=== PATIENT | male | born 1965 | race Caucasian/White ===

== ENCOUNTER 2018-01-11 11:21 | Observation (INO) | payer BC ==
[2018-01-11] MEDS: Aspirin 81 MG Tab.Chew PO ONE (11:27)
[2018-01-11] MEDS: GI Cocktail Oral Solution 30 ML PO ONE (11:51)
--- NOTE | 2018-01-11 11:51 | EDM.PDOC ---
ED HPI GENERAL MEDICAL PROBLEM - General Chief Complaint: Chest Pain Stated Complaint: chest pain Time Seen by Provider: 01/11/18 11:36 Source of Information: Reports: Patient, Family, RN, RN Notes Reviewed History Limitations: Reports: No Limitations - History of Present Illness INITIAL COMMENTS - FREE TEXT/NARRATIVE: Patient presents to the ED at [facility] complaining of substernal chest pain. Patient states the pain started a couple of hours ago. He states he has a history of panic attacks, "but this feels different." He states he has tingling down both arms. When his pain started, he did have SOB but no SOB now. Patient denies any N/V/D. No focal neurological complaints. No significant cardiac history. Onset: Today, Gradual Onset Date: 01/11/18 Middle Chest Pain Score (Numeric/FACES): 5 - Related Data Allergies Allergy/AdvReac Type Severity Reaction Status Date / Time erythromycin base Allergy Nausea Verified 01/11/18 12:04 hydrocortisone Allergy Anaphylactic Verified 01/11/18 12:04 Shock metoclopramide [From Reglan] Allergy Change Verified 01/11/18 12:04 Mental Status tetracycline Allergy Nausea Verified 01/11/18 12:04 Home Meds: Home Meds Aspirin 81 mg PO DAILY 01/11/18 [History] Dicyclomine [Bentyl] 20 mg PO TID PRN 01/11/18 [History] Lactulose 1,030 ml PO BID PRN 01/11/18 [History] Lansoprazole [Prevacid] 15 mg PO DAILY 01/11/18 [History] Metoprolol Tartrate [Lopressor] 25 mg PO Q12HR 01/11/18 [History] Polyethylene Glycol 3350 [MiraLAX] 17 gm PO DAILY 01/11/18 [History] Sennosides/Docusate Sodium [Senna-Docusate Sodium] 1 each PO DAILY 01/11/18 [ History] buPROPion HCl [Wellbutrin Sr] 200 mg PO BID 01/11/18 [History] hydrOXYzine Pamoate [Vistaril] 25 mg PO QID PRN 01/11/18 [History] ED ROS GENERAL - Review of Systems Review Of Systems: See Below Constitutional: Denies: Fever, Chills, Weakness Respiratory: Reports: Shortness of Breath. Denies: Cough Cardiovascular: Reports: Chest Pain. Denies: Palpitations GI/Abdominal: Denies: Abdominal Pain, Nausea, Vomiting Skin: Reports: No Symptoms Neurological: Reports: Tingling (down both arms). Denies: Dizziness, Headache ED EXAM, GENERAL - Physical Exam Exam: See Below Exam Limited By: No Limitations General Appearance: Alert, No Apparent Distress Respiratory/Chest: No Respiratory Distress, Lungs Clear, Normal Breath Sounds Cardiovascular: Normal Peripheral Pulses, Regular Rate, Rhythm, No Edema Peripheral Pulses: 2+: Radial (L), Radial (R) GI/Abdominal: Normal Bowel Sounds, Soft, Non-Tender Neurological: Alert, Oriented Skin Exam: Warm, Dry, Intact, Normal Color EKG INTERPRETATION EKG Date: 01/11/18 Time: 11:31 Rhythm: NSR Rate (Beats/Min): 60 [place]: Normal P-Wave: Present QRS: Normal ST-T: Normal QT: Normal DC/PQ Interval: 0.20 Comparison: NA - No Prior EKG EKG Interpretation Comments: 1. Sinus Rhythm with sinus arrhythmia 2. Normal ECG Course - Vital Signs Last Recorded V/S: Last Vital Signs Temp 36.0 C 01/11/18 11:26 Pulse 78 01/11/18 12:29 Resp 16 01/11/18 12:29 BP 139/80 01/11/18 12:29 Pulse Ox 98 01/11/18 12:29 - Orders/Labs/Meds Orders: Active Orders 24 hr Category Date Time Status EKG 12 Lead [EKG Documentation Completion] [RC] STAT Care 01/11/18 11:39 Active Chest 2V [CR] Stat Exams 01/11/18 11:38 Taken Sodium Chloride 0.9% [Saline Flush] Med 01/11/18 12:24 Active 10 ml FLUSH ASDIRECTED PRN Peripheral IV Insertion Adult [OM.PC] Routine Oth 01/11/18 12:24 Ordered Medication Orders Sodium Chloride (Saline Flush) 10 ml FLUSH ASDIRECTED PRN PRN Reason: Keep Vein Open Labs: Laboratory Tests 01/11/18 01/11/18 01/11/18 Range/Units 11:48 11:48 11:48 WBC 6.7 (4.0-10.0) x10^3/uL RBC 5.01 (4.5-6.0) x10^6/uL Hgb 15.9 (14.0-18.0) g/dL Hct 43.8 (40.0-52.0) % MCV 87.4 (78.0-93.0) fL MCH 31.7 (26.0-32.0) pg MCHC 36.3 H (32.0-36.0) g/dL RDW Coeff of Trish 12.8 (10.0-15.0) % Plt Count 207 (130-400) x10^3/uL Neut % (Auto) 74.9 (50.0-80.0) % Lymph % (Auto) 15.7 L (25.0-50.0) % [place] % (Auto) 7.6 (2.0-11.0) % Eos % (Auto) 1.5 (0.0-4.0) % Baso % (Auto) 0.3 (0.2-1.2) % Sodium 142 (136-145) mmol/L Potassium 4.3 (3.5-5.1) mmol/L Chloride 106 (98-107) mmol/L Carbon Dioxide 26 (21-32) mmol/L Anion Gap 14.3 (10-20) mmol/L BUN 14 (7-18) mg/dL Creatinine 1.5 H (0.70-1.30) mg/dL Est Cr Clr Drug Dosing TNP Estimated GFR (MDRD) 49 Glucose 100 (74-106) mg/dL Calcium 9.0 (8.5-10.1) mg/dL Corrected Calcium 9.00 (8.5-10.1) mg/dL Total Bilirubin 2.0 H (0.2-1.0) mg/dL AST 24 (15-37) U/L ALT 65 H (16-63) U/L Alkaline Phosphatase 92 (46-116) U/L Creatine Kinase 103 (39-308) U/L POC Troponin I 0.00 (0.00-0.08) ng/mL Total Protein 7.2 (6.4-8.2) g/dL Albumin 4.0 (3.4-5.0) g/dL Globulin 3.2 Albumin/Globulin Ratio 1.25 Meds: Medications Generic Name Dose Route Start Last Admin Trade Name Freq PRN Reason Stop Dose Admin Sodium Chloride 10 ml 01/11/18 12:24 Saline Flush FLUSH ASDIRECTED PRN Keep Vein Open Discontinued Medications Generic Name Dose Route Start Last Admin Trade Name [place] PRN Reason Stop Dose Admin Al Hydroxide/Mg Hydroxide 30 ml 01/11/18 11:43 01/11/18 11:51 Gi Cocktail PO 01/11/18 11:44 30 ml ONETIME ONE Administration Aspirin 324 mg 01/11/18 11:43 01/11/18 11:27 Aspirin PO 01/11/18 11:44 324 mg ONETIME ONE Administration Nitroglycerin 0.4 mg 01/11/18 12:20 01/11/18 12:28 Nitrostat SL 01/11/18 12:21 0.4 mg ONETIME ONE Administration - Radiology Interpretation Free Text/Narrative:: CXR: No acute process See scanned report in EMR Departure - Departure Time of Disposition: 13:19 Disposition: Refer to Observation Reason for Transfer *Q: Other Condition: Good Clinical Impression: Chest pain, rule out acute myocardial infarction - Problem List Review Problem List Initiated/Reviewed/Updated: Yes - My Orders Last 24 Hours: My Active Orders 01/11/18 11:38 Chest 2V [CR] Stat 01/11/18 11:39 EKG 12 Lead [EKG Documentation Completion] [RC] STAT 01/11/18 12:24 Sodium Chloride 0.9% [Saline Flush] 10 ml FLUSH ASDIRECTED PRN Peripheral IV Insertion Adult [OM.PC] Routine - Assessment/Plan Last 24 Hours: My Active Orders 01/11/18 11:38 Chest 2V [CR] Stat 01/11/18 11:39 EKG 12 Lead [EKG Documentation Completion] [RC] STAT 01/11/18 12:24 Sodium Chloride 0.9% [Saline Flush] 10 ml FLUSH ASDIRECTED PRN Peripheral IV Insertion Adult [OM.PC] Routine Assessment:: Chest Pain R/O DC Plan: Case discussed with Dr. Danni Camacho. Will admit observation and monitor serial enzymes and EKG's. If normal will D/C home and schedule outpatient stress test with Dr. Camacho for next week. Patient agrees with POC.
[2018-01-11 12:24] LABS: CHLORIDE,CL 106 mmol/L (98-107); SODIUM,NA 142 mmol/L (136-145)
[2018-01-11] MEDS ORDERED: Sodium Chloride 0.9% 10 ML Syringe FLUSH PRN (12:24)
[2018-01-11] MEDS: Nitroglycerin 0.4 MG Tab.SL SL ONE (12:28)
[2018-01-11] MEDS ORDERED: Nitroglycerin 0.4 MG Tab.SL SL PRN (13:48)
[2018-01-11] MEDS ORDERED: Ondansetron 4 MG Tab.DIS PO PRN (13:48)
[2018-01-11] MEDS ORDERED: Morphine 4 MG/ML Syringe IVPUSH PRN (13:48)
[2018-01-11] MEDS ORDERED: hydrOXYzine HCl 25 MG Tab PO PRN (13:52)
[2018-01-11] MEDS ORDERED: Lactulose Soln 10 GM/15 ML 15 ML UD Cup PO PRN (13:52)
[2018-01-11] MEDS ORDERED: Dicyclomine 10 MG Cap PO PRN (13:52)
[2018-01-11] MEDS ORDERED: Lactulose Soln 10 GM/15 ML 30 ML UD Cup PO PRN (14:30)
--- NOTE | 2018-01-11 14:30 | PCM.HP ---
H&P History of Present Illness - General Date of Service: 01/11/18 Admit Problem/Dx: Admission Diagnosis/Problem Admission Diagnosis/Problem Chest pain R/O MA Source of Information: Patient, Old Records, RN, RN Notes Reviewed History Limitations: Reports: No Limitations - History of Present Illness Initial Comments - Free Text/Narative: Patient presented to the ED at [facility] complaining of chest pain that started earlier today. He states he had concurrent SOB. Patient was evaluated in the ED and found normal enzymes and EKG. Patient states that he also have tingling down both arms. Patient currently is chest pain free after one nitro. He denies any focal neurological deficits. Patient denies any N/V/D. No SOB. Patient states he feels better than he did earlier today. Onset of Symptoms: Reports: Today, Gradual Symptom Onset Date: 01/11/18 Middle Chest Pain Score (Numeric/FACES): 5 - Related Data Allergies/Adverse Reactions: Allergies Allergy/AdvReac Type Severity Reaction Status Date / Time erythromycin base Allergy Nausea Verified 01/11/18 12:04 hydrocortisone Allergy Anaphylactic Verified 01/11/18 12:04 Shock metoclopramide [From Reglan] Allergy Change Verified 01/11/18 12:04 Mental Status tetracycline Allergy Nausea Verified 01/11/18 12:04 Home Medications: Home Meds Aspirin 81 mg PO DAILY 01/11/18 [History] Dicyclomine [Bentyl] 20 mg PO TID PRN 01/11/18 [History] Lactulose 1,030 ml PO BID PRN 01/11/18 [History] Lansoprazole [Prevacid] 15 mg PO DAILY 01/11/18 [History] Metoprolol Tartrate [Lopressor] 25 mg PO Q12HR 01/11/18 [History] Polyethylene Glycol 3350 [MiraLAX] 17 gm PO DAILY 01/11/18 [History] Sennosides/Docusate Sodium [Senna-Docusate Sodium] 1 each PO DAILY 01/11/18 [ History] buPROPion HCl [Wellbutrin Sr] 200 mg PO BID 01/11/18 [History] hydrOXYzine Pamoate [Vistaril] 25 mg PO QID PRN 01/11/18 [History] Past Medical History Cardiovascular History: Reports: Hypertension Respiratory History: Reports: Sleep Apnea Gastrointestinal History: Reports: Colon Polyp, GERD, Irritable Bowel Syndrome Genitourinary History: Reports: Chronic Renal Insuffiency, Other (See Below) Other Genitourinary History: enlarged prostate Psychiatric History: Reports: ADD, Depression, OCD, Panic Attack Other Psychiatric History: daytime somnolence - Past Surgical History Other GI Surgeries/Procedures: colon polyp Social & Family History - Family History Family Medical History: Noncontributory - Tobacco Use Smoking Status *Q: Never Smoker - Recreational Drug Use Recreational Drug Use: No H&P Review of Systems - Review of Systems: Review Of Systems: See Below General: Denies: Fever, Chills, Weakness Pulmonary: Denies: Shortness of Breath, Cough Cardiovascular: Denies: Chest Pain, Palpitations Gastrointestinal: Denies: Abdominal Pain, Nausea, Vomiting Skin: Reports: No Symptoms Neurological: Denies: Dizziness, Headache, Numbness, Paresthesia, Tingling Exam - Exam Exam: See Below - Vital Signs Vital Signs: Last Vital Signs Temp 36.3 C 01/11/18 13:54 Pulse 53 L 01/11/18 13:54 Resp 16 01/11/18 13:54 BP 135/81 01/11/18 13:54 Pulse Ox 100 01/11/18 13:54 Weight: 108.862 kg - Exam General: Alert, Oriented Lungs: Clear to Auscultation, Normal Respiratory Effort Cardiovascular: Regular Rate, Regular Rhythm, Normal S1, Normal S2 GI/Abdominal Exam: Normal Bowel Sounds, Soft, Non-Tender Extremities: Normal Inspection Peripheral Pulses: 2+: Radial (L), Radial (R) Skin: Warm, Dry, Intact Neuro Extensive - Mental Status: Alert, Oriented x3 - Patient Data Lab Results Last 24 hrs: Laboratory Results - last 24 hr 01/11/18 01/11/18 01/11/18 Range/Units 11:48 11:48 11:48 WBC 6.7 (4.0-10.0) x10^3/uL RBC 5.01 (4.5-6.0) x10^6/uL Hgb 15.9 (14.0-18.0) g/dL Hct 43.8 (40.0-52.0) % MCV 87.4 (78.0-93.0) fL MCH 31.7 (26.0-32.0) pg MCHC 36.3 H (32.0-36.0) g/dL RDW Coeff of Trish 12.8 (10.0-15.0) % Plt Count 207 (130-400) x10^3/uL Neut % (Auto) 74.9 (50.0-80.0) % Lymph % (Auto) 15.7 L (25.0-50.0) % [place] % (Auto) 7.6 (2.0-11.0) % Eos % (Auto) 1.5 (0.0-4.0) % Baso % (Auto) 0.3 (0.2-1.2) % Sodium 142 (136-145) mmol/L Potassium 4.3 (3.5-5.1) mmol/L Chloride 106 (98-107) mmol/L Carbon Dioxide 26 (21-32) mmol/L Anion Gap 14.3 (10-20) mmol/L BUN 14 (7-18) mg/dL Creatinine 1.5 H (0.70-1.30) mg/dL Est Cr Clr Drug Dosing TNP Estimated GFR (MDRD) 49 Glucose 100 (74-106) mg/dL Calcium 9.0 (8.5-10.1) mg/dL Corrected Calcium 9.00 (8.5-10.1) mg/dL Total Bilirubin 2.0 H (0.2-1.0) mg/dL AST 24 (15-37) U/L ALT 65 H (16-63) U/L Alkaline Phosphatase 92 (46-116) U/L Creatine Kinase 103 (39-308) U/L POC Troponin I 0.00 (0.00-0.08) ng/mL Total Protein 7.2 (6.4-8.2) g/dL Albumin 4.0 (3.4-5.0) g/dL Globulin 3.2 Albumin/Globulin Ratio 1.25 Result Diagrams: 01/11/18 11:48 01/11/18 11:48 *Q Meaningful Use (ADM) - VTE *Q VTE Criteria *Q: Patient is not at risk for fall or VTE at time of admission - Problem List (1) Chest pain, rule out acute myocardial infarction SNOMED Code(s): 97511833 ICD Code: R07.9 - CHEST PAIN, UNSPECIFIED Status: Acute Priority: High Current Visit: Yes Onset Date: ~01/11/18 Problem List Initiated/Reviewed/Updated: Yes Orders Last 24hrs: Active Orders 24 hr Category Date Time Status Patient Status [ADT] Routine ADT 01/11/18 13:54 Active Cardiac Monitoring [RC] 02,06,10,14,18,22 Care 01/11/18 13:48 Active EKG 12 Lead [EKG Documentation Completion] [RC] ROUTINE Care 01/11/18 15:00 Active EKG Documentation Completion [RC] ROUTINE Care 01/11/18 18:00 Active Intake and Output [RC] ,18 Care 01/11/18 13:55 Active May Shower [RC] 08,20 Care 01/11/18 13:54 Active Oxygen Therapy [RC] .PRN Care 01/11/18 13:54 Active Oxygen Therapy [RC] ASDIRECTED Care 01/11/18 13:48 Active Up ad Suha [RC] 08,20 Care 01/11/18 13:54 Active VTE/DVT Education [RC] .PRN Care 01/11/18 13:54 Active Vital Signs [RC] 02,06,10,14,18,22 Care 01/11/18 13:54 Active Heart Healthy Diet [DIET] Diet 01/11/18 Dinner Active Chest 2V [CR] Stat Exams 01/11/18 11:38 Taken CREATINE KINASE,CK [CHEM] Routine Lab 01/11/18 15:00 Ordered CREATINE KINASE,CK [CHEM] Routine Lab 01/11/18 18:00 Ordered TROPONIN I [CHEM] Routine Lab 01/11/18 15:00 Ordered TROPONIN I [CHEM] Routine Lab 01/11/18 18:00 Ordered Aspirin [Halfprin] Med 01/12/18 08:00 Active 81 mg PO DAILY Dicyclomine [Bentyl] Med 01/11/18 13:52 Active 20 mg PO TID PRN Docusate Sodium/Sennosides [Senna Plus] Med 01/12/18 08:00 Active 1 tab PO DAILY Lactulose [Chronulac] Med 01/11/18 13:52 Ordered 686.666 gm PO BID PRN Lansoprazole [Prevacid] Med 01/12/18 08:00 Ordered 15 mg PO DAILY Metoprolol Tartrate [Lopressor] Med 01/11/18 20:00 Ordered 25 mg PO Q12HR Morphine Med 01/11/18 13:48 Active 4 mg IVPUSH Q10M PRN Nitroglycerin [Nitrostat] Med 01/11/18 13:48 Active 0.4 mg SL Q5M PRN Ondansetron [Zofran ODT] Med 01/11/18 13:48 Active 4 mg PO Q6H PRN Polyethylene Glycol 3350 [MiraLAX] Med 01/12/18 08:00 Ordered 17 gm PO DAILY Sodium Chloride 0.9% [Saline Flush] Med 01/11/18 12:24 Active 10 ml FLUSH ASDIRECTED PRN buPROPion [Wellbutrin SR] Med 01/11/18 20:00 Active 200 mg PO BID hydrOXYzine Pamoate [Vistaril] Med 01/11/18 13:52 Ordered 25 mg PO QID PRN Peripheral IV Insertion Adult [OM.PC] Routine Oth 01/11/18 12:24 Ordered Resuscitation Status Routine Resus Stat 01/11/18 13:54 Ordered Medication Orders Aspirin (Halfprin) 81 mg PO DAILY [facility] Bupropion HCl (Wellbutrin Sr) 200 mg PO BID [facility] Dicyclomine HCl (Bentyl) 20 mg PO TID PRN PRN Reason: Cramping Lactulose (Chronulac) 686.666 gm PO BID PRN PRN Reason: Constipation Metoprolol Tartrate (Lopressor) 25 mg PO Q12HR [facility] Morphine Sulfate (Morphine) 4 mg IVPUSH Q10M PRN PRN Reason: Chest Pain Stop: 01/12/18 13:49 Nitroglycerin (Nitrostat) 0.4 mg SL Q5M PRN PRN Reason: Chest Pain Stop: 01/12/18 13:49 Non-Formulary Medication (Hydroxyzine Pamoate [Vistaril]) 25 mg PO QID PRN PRN Reason: Itching Non-Formulary Medication (Lansoprazole [Prevacid]) 15 mg PO DAILY [facility] Ondansetron HCl (Zofran Odt) 4 mg PO Q6H PRN PRN Reason: Nausea/Vomiting Polyethylene Glycol (Miralax) 17 gm PO DAILY [facility] Senna/Docusate Sodium (Senna Plus) 1 tab PO DAILY [facility] Sodium Chloride (Saline Flush) 10 ml FLUSH ASDIRECTED PRN PRN Reason: Keep Vein Open Assessment/Plan Comment:: 52 yo male patient with a PMH of anxiety, ALONDRA, and hypertension is admitted to the observation unit at [facility] for a diagnosis of chest pain r/o MA. Patient will be placed on telemetry. Cardiac chest pain standing orders initiated. Continue home medication without any changes. Will check serial enzymes with EKG's. If normal, patient may go home later this evening. Patient is a Code 1. Patient does wish to be transferred to a higher level of care should the need arise. DVT prophylaxis is early ambulation. No indication for Lovenox
--- NOTE | 2018-01-11 19:35 | PCM.DCSUM1 ---
Discharge Summary - Hospital Course HPI Initial Comments: Patient presented to the ED at [facility] earlier today complaining of chest pain that started this morning. He states he had concurrent SOB. Patient was evaluated in the ED and found normal enzymes and EKG. Patient states that he also have tingling down both arms. Patient currently is chest pain free after one nitro. He denies any focal neurological deficits. Patient denies any N/V/D. No SOB. Patient states he feels better than he did earlier today. Diagnosis: Stroke: No Modified Amy Scale: No Symptoms at All Modified Owsley Scale Score: 0 - Discharge Data Discharge Date: 01/11/18 Discharge Disposition: Home, Self-Care 01 Condition: Good - Discharge Diagnosis/Problem(s) (1) Chest pain, rule out acute myocardial infarction SNOMED Code(s): 55715630 ICD Code: R07.9 - CHEST PAIN, UNSPECIFIED Status: Resolved Priority: High Current Visit: Yes Onset Date: ~01/11/18 - Patient Summary/Data Operative Procedure(s) Performed: None Consults: Dr. Danni Camacho, Labs Pending at D/C: None Recommended Follow-up Testing/Procedures: Stress test with Dr. Camacho next with at [facility] Course: Patient remained pain free. VSS. No fevers. Patient did not have any SOB. No focal neurological problems. - Patient Instructions Diet: Heart Healthy Diet Activity: Rest and Relax Today Driving: May Drive Today Showering/Bathing: May Shower Notify Provider of: Fever, Increased Pain, Nausea and/or Vomiting - Discharge Plan Home Medications: Home Meds Aspirin 81 mg PO DAILY 01/11/18 [History] Dicyclomine [Bentyl] 20 mg PO Q8H PRN 01/11/18 [History] Lactulose 30 ml PO BID PRN 01/11/18 [History] Lansoprazole [Prevacid] 15 mg PO DAILY 01/11/18 [History] Metoprolol Tartrate [Lopressor] 25 mg PO BID 01/11/18 [History] Polyethylene Glycol 3350 [MiraLAX] 17 gm PO DAILY 01/11/18 [History] Sennosides/Docusate Sodium [Senna-Docusate Sodium] 1 tab PO DAILY 01/11/18 [ History] buPROPion HCl [Wellbutrin SR] 200 mg PO BID 01/11/18 [History] hydrOXYzine Pamoate [Vistaril] 25 mg PO QID PRN 01/11/18 [History] Patient Handouts: Chest Pain Observation Referrals: Rebecca Camacho PA-C [Primary Care Provider] - - Discharge Summary/Plan Comment DC Time >30 min.: No - General Info Date of Service: 01/11/18 Admission Dx/Problem (Free Text: Admission Diagnosis/Problem Admission Diagnosis/Problem Chest pain R/O NE Subjective Update: Patient offers no specific complaints at the time of discharge. Patient states he feels well, no pain or chest pain. Functional Status: Reports: Pain Controlled, Tolerating Diet, Ambulating, Urinating - Review of Systems General: Denies: Fever, Weakness, Chills Pulmonary: Denies: Shortness of Breath, Cough Cardiovascular: Denies: Chest Pain, Palpitations Gastrointestinal: Denies: Abdominal Pain, Nausea, Vomiting Skin: Reports: No Symptoms Neurological: Reports: No Symptoms. Denies: Dizziness, Headache - Patient Data Vitals - Most Recent: Last Vital Signs Temp 36.8 C 01/11/18 16:54 Pulse 85 01/11/18 16:54 Resp 14 01/11/18 16:54 BP 138/69 01/11/18 16:54 Pulse Ox 100 01/11/18 16:54 Weight - Most Recent: 108.862 kg I&O - Last 24 hours: Intake & Output 01/11/18 01/11/18 01/11/18 06:59 14:59 22:59 Intake Total 360 Output Total 500 Balance -140 Lab Results - Last 24 hrs: Laboratory Results - last 24 hr 01/11/18 01/11/18 01/11/18 Range/Units 11:48 11:48 11:48 WBC 6.7 (4.0-10.0) x10^3/uL RBC 5.01 (4.5-6.0) x10^6/uL Hgb 15.9 (14.0-18.0) g/dL Hct 43.8 (40.0-52.0) % MCV 87.4 (78.0-93.0) fL MCH 31.7 (26.0-32.0) pg MCHC 36.3 H (32.0-36.0) g/dL RDW Coeff of Trish 12.8 (10.0-15.0) % Plt Count 207 (130-400) x10^3/uL Neut % (Auto) 74.9 (50.0-80.0) % Lymph % (Auto) 15.7 L (25.0-50.0) % [place] % (Auto) 7.6 (2.0-11.0) % Eos % (Auto) 1.5 (0.0-4.0) % Baso % (Auto) 0.3 (0.2-1.2) % Sodium 142 (136-145) mmol/L Potassium 4.3 (3.5-5.1) mmol/L Chloride 106 (98-107) mmol/L Carbon Dioxide 26 (21-32) mmol/L Anion Gap 14.3 (10-20) mmol/L BUN 14 (7-18) mg/dL Creatinine 1.5 H (0.70-1.30) mg/dL Est Cr Clr Drug Dosing TNP Estimated GFR (MDRD) 49 Glucose 100 (74-106) mg/dL Calcium 9.0 (8.5-10.1) mg/dL Corrected Calcium 9.00 (8.5-10.1) mg/dL Total Bilirubin 2.0 H (0.2-1.0) mg/dL AST 24 (15-37) U/L ALT 65 H (16-63) U/L Alkaline Phosphatase 92 (46-116) U/L Creatine Kinase 103 (39-308) U/L POC Troponin I 0.00 (0.00-0.08) ng/mL Troponin I (<=0.056) ng/mL Total Protein 7.2 (6.4-8.2) g/dL Albumin 4.0 (3.4-5.0) g/dL Globulin 3.2 Albumin/Globulin Ratio 1.25 18 01/11/18 Range/Units 15:25 17:58 WBC (4.0-10.0) x10^3/uL RBC (4.5-6.0) x10^6/uL Hgb (14.0-18.0) g/dL Hct (40.0-52.0) % MCV (78.0-93.0) fL MCH (26.0-32.0) pg MCHC (32.0-36.0) g/dL RDW Coeff of Trish (10.0-15.0) % Plt Count (130-400) x10^3/uL Neut % (Auto) (50.0-80.0) % Lymph % (Auto) (25.0-50.0) % [place] % (Auto) (2.0-11.0) % Eos % (Auto) (0.0-4.0) % Baso % (Auto) (0.2-1.2) % Sodium (136-145) mmol/L Potassium (3.5-5.1) mmol/L Chloride (98-107) mmol/L Carbon Dioxide (21-32) mmol/L Anion Gap (10-20) mmol/L BUN (7-18) mg/dL Creatinine (0.70-1.30) mg/dL Est Cr Clr Drug Dosing Estimated GFR (MDRD) Glucose (74-106) mg/dL Calcium (8.5-10.1) mg/dL Corrected Calcium (8.5-10.1) mg/dL Total Bilirubin (0.2-1.0) mg/dL AST (15-37) U/L ALT (16-63) U/L Alkaline Phosphatase (46-116) U/L Creatine Kinase 90 97 (39-308) U/L POC Troponin I (0.00-0.08) ng/mL Troponin I < 0.017 < 0.017 (<=0.056) ng/mL Total Protein (6.4-8.2) g/dL Albumin (3.4-5.0) g/dL Globulin Albumin/Globulin Ratio Med Orders - Current: Current Medications Aspirin (Halfprin) 81 mg PO DAILY [facility] Bupropion HCl (Wellbutrin Sr) 200 mg PO BID [facility] Dicyclomine HCl (Bentyl) 20 mg PO TID PRN PRN Reason: Cramping Hydroxyzine HCl (Atarax) 25 mg PO QID PRN PRN Reason: Itching Lactulose (Cephulac) 20 gm PO BID PRN PRN Reason: Constipation Metoprolol Tartrate (Lopressor) 25 mg PO BID [facility] Morphine Sulfate (Morphine) 4 mg IVPUSH Q10M PRN PRN Reason: Chest Pain Stop: 01/12/18 13:49 Nitroglycerin (Nitrostat) 0.4 mg SL Q5M PRN PRN Reason: Chest Pain Stop: 01/12/18 13:49 Omeprazole (Omeprazole) 20 mg PO DAILY@0700 [facility] Ondansetron HCl (Zofran Odt) 4 mg PO Q6H PRN PRN Reason: Nausea/Vomiting Polyethylene Glycol (Miralax) 17 gm PO DAILY [facility] Senna/Docusate Sodium (Senna Plus) 1 tab PO DAILY [facility] Sodium Chloride (Saline Flush) 10 ml FLUSH ASDIRECTED PRN PRN Reason: Keep Vein Open Discontinued Medications Al Hydroxide/Mg Hydroxide (Gi Cocktail) 30 ml PO ONETIME ONE Stop: 01/11/18 11:44 Last Admin: 01/11/18 11:51 Dose: 30 ml Aspirin (Aspirin) 324 mg PO ONETIME ONE Stop: 01/11/18 11:44 Last Admin: 01/11/18 11:27 Dose: 324 mg Lactulose (Chronulac) 20 gm PO BID PRN PRN Reason: Constipation Nitroglycerin (Nitrostat) 0.4 mg SL ONETIME ONE Stop: 01/11/18 12:21 Last Admin: 01/11/18 12:28 Dose: 0.4 mg - Exam General: Reports: Alert, Oriented, Cooperative, No Acute Distress Lungs: Reports: Clear to Auscultation, Normal Respiratory Effort Cardiovascular: Reports: Regular Rate, Regular Rhythm GI/Abdominal Exam: Normal Bowel Sounds, Soft, Non-Tender Skin: Reports: Warm, Dry, Intact Neurological: Reports: No New Focal Deficit *Q Meaningful Use (DIS) - VTE *Q VTE Criteria *Q: No risk for falls at time of discharge
[2018-01-11] MEDS ORDERED: buPROPion 100 MG Tab.SR PO SCH (20:00)
[2018-01-11] MEDS ORDERED: Metoprolol Tartrate 25 MG Tab PO SCH (20:00)
[2018-01-12] MEDS ORDERED: Omeprazole 20 MG Cap.CR PO SCH (07:00)
[2018-01-12] MEDS ORDERED: Aspirin 81 MG Tab.Chew PO SCH (08:00)
[2018-01-12] MEDS ORDERED: Polyethylene Glycol 3350 Powder 17 GM Packet PO SCH (08:00)
[2018-01-12] MEDS ORDERED: Aspirin 81 MG Tab.EC PO SCH (08:00)
== END 2018-01-11 20:10 | disposition home or self-care (01) ==
LOC: VM.ED 11:21 → VM.MS 13:20
PROVIDERS: ADMIT Nurse Practitioner Family; ATTEND Nurse Practitioner Family
DX: R07.9 Chest pain, unspecified (principal); G47.30 Sleep apnea, unspecified; K21.9 Gastro-esophageal reflux disease without esophagitis; K58.9 Irritable bowel syndrome, unspecified; N40.0 Benign prostatic hyperplasia without lower urinary tract symptoms; F98.8 Other specified behavioral and emotional disorders with onset usually occurring in childhood and adolescence; F32.9 Major depressive disorder, single episode, unspecified; Z79.82 Long term (current) use of aspirin; Z79.899 Other long term (current) drug therapy; Z88.1 Allergy status to other antibiotic agents; Z88.8 Allergy status to other drugs, medicaments and biological substances; Z98.890 Other specified postprocedural states
CPT/HCPCS: 36415; 71046; 80053; 82550; 84484; 85025; 93005; 99285; A9270-GY; G0378

== ENCOUNTER 2020-05-29 18:23 | Emergency (ER) | payer BC ==
--- NOTE | 2020-05-29 19:30 | EDM.PDOC ---
ED HPI GENERAL MEDICAL PROBLEM - General Chief Complaint: Chest Pain Stated Complaint: CHEST PAIN Time Seen by Provider: 05/29/20 20:11 Source of Information: Reports: Patient - History of Present Illness INITIAL COMMENTS - FREE TEXT/NARRATIVE: Tyler is a 54 y/o male who comes to the ER to be checked out after he had a bout of chest pain about 4 pm today while sitting at his desk. He reports that the pain with in his left upper chest and shoulder region and also went down his left arm. It lasted anywhere from 5-15 minutes and it took his breath away; he became nauseated and diaphoretic. He did have a couple bouts of dry coughing today since about noon. Then he did also have some tingling in his right hand. Now her reports the chest pain is gone, but he just feels "not right". He had a bout of chest pain in 2018 where he was worked up for ACS, but then he saw his PCP and it was decided that he did nto need to see Cardiology. A couple months ago he went into the [place] ER with more panic type symptoms and that did not show any ACS and he has not seen Cardiology. Tonight he did took 1 Nitroglycerin tablet and that did not do anything for him. he has had the Ntg since 2018, but this is first time her ever used it. Subsequently he reports that when the pain started he was sitting at his desk and reading a distressing email. Treatments BILL PEDDLER: Reports: Other (see below) Other Treatments BILL PEDDLER: nitro x 1 at 1810 at home Left Chest Pain Score (Numeric/FACES): 5 - Related Data Allergies Allergy/AdvReac Type Severity Reaction Status Date / Time hydrocortisone Allergy Severe Anaphylactic Verified 05/29/20 18:46 Shock erythromycin base AdvReac Nausea Verified 05/29/20 18:46 metoclopramide [From Reglan] AdvReac Change Verified 05/29/20 18:46 Mental Status tetracycline AdvReac Nausea Verified 05/29/20 18:46 Home Meds: Home Meds Dicyclomine [Bentyl] 20 mg PO Q8H PRN 01/11/18 [History] Metoprolol Tartrate [Lopressor] 25 mg PO BID 01/11/18 [History] Sennosides/Docusate Sodium [Senna-Docusate Sodium] 1 tab PO DAILY 01/11/18 [History] buPROPion HCL [Wellbutrin SR] 200 mg PO BID 01/11/18 [History] hydrOXYzine pamoate [Vistaril] 25 mg PO QID PRN 01/11/18 [History] Albuterol Sulfate [Proair Hfa] 2 puff IH Q4H PRN 05/29/20 [History] Losartan [Cozaar] 25 mg PO DAILY 05/29/20 [History] Methylphenidate HCl [Ritalin] 20 mg PO BID 05/29/20 [History] Nitroglycerin [Nitrostat] 0.4 mg SL ASDIRECTED PRN 05/29/20 [History] Pantoprazole Sodium [Protonix] 40 mg PO DAILY 05/29/20 [History] Past Medical History Cardiovascular History: Reports: Angina, Hypertension Respiratory History: Reports: Sleep Apnea Gastrointestinal History: Reports: Colon Polyp, GERD, Irritable Bowel Syndrome Genitourinary History: Reports: Chronic Renal Insuffiency, Other (See Below) Other Genitourinary History: enlarged prostate Psychiatric History: Reports: ADD, Depression, OCD, Panic Attack Other Psychiatric History: daytime somnolence - Past Surgical History Other GI Surgeries/Procedures: colon polyp Social & Family History - Family History Family Medical History: Noncontributory - Tobacco Use Tobacco Use Status *Q: Unknown Ever Used Tobacco Review of Systems - Review of Systems Review Of Systems: See Below Constitutional: Reports: No Symptoms Eyes: Reports: No Symptoms Ears: Reports: No Symptoms Nose: Reports: No Symptoms Mouth/Throat: Reports: No Symptoms Respiratory: Reports: Shortness of Breath Cardiovascular: Reports: Chest Pain GI/Abdominal: Reports: Nausea Genitourinary: Reports: No Symptoms Musculoskeletal: Reports: Joint Pain (Left shoulder/arm) Skin: Reports: Diaphoresis Neurological: Reports: Tingling Psychiatric: Reports: No Symptoms ED EXAM, GENERAL - Physical Exam Exam: See Below Exam Limited By: No Limitations General Appearance: Alert, WD/WN, No Apparent Distress (Adult male, NAD.) Ears: Normal External Exam, Normal Canal, Hearing Grossly Normal, Normal TMs Nose: Normal Inspection, Normal Mucosa Throat/Mouth: Normal Inspection, Normal Lips, Normal Teeth, Normal Gums, Normal Voice Head: Atraumatic, Normocephalic Neck: Normal Inspection, Supple, Non-Tender Respiratory/Chest: No Respiratory Distress, Lungs Clear, Other (note single finger area of point tenderness in vicki right upper chest region) Cardiovascular: Normal Peripheral Pulses, Regular Rate, Rhythm, No Edema GI/Abdominal: Normal Bowel Sounds, Soft, Non-Tender (Male) Exam: Deferred Rectal (Males) Exam: Deferred Back Exam: Other (note muscle tightness in the right posterior region with a single area of point tenderness noted in the trapezoid region) Extremities: Normal Inspection, Normal Range of Motion, No Pedal Edema, Normal Capillary Refill Neurological: Alert, Oriented, CN II-XII Intact, Normal Cognition, Normal Gait Psychiatric: Anxious Skin Exam: Warm, Dry, Intact, Normal Color, No Rash Lymphatic: No Adenopathy #1 Interpretation EKG Date: 05/29/20 Time: 18:28 Rhythm: NSR Rate (Beats/Min): 67 Salter Path: Normal P-Wave: Present QRS: Normal ST-T: Normal QT: Normal Comparison: No Change #2 Interpretation EKG Date: 05/29/20 Time: 22:12 Rhythm: NSR Rate (Beats/Min): 53 Salter Path: Normal P-Wave: Present QRS: Normal ST-T: Normal QT: Normal Comparison: Change From Previous EKG (CO Interval Prolonged/NSR) Course - Vital Signs Text/Narrative:: 1840 The patient was seen by the [facility]. Labs and EKG were done. ASA 324mg po given. On clinical exam, he presented more like musculoskeletal pain since he had 2 regions of muscle tenderness noted. Will rule out cardiac etiology. Toradol 30mg IVP and Valium 10mg po ordered 1904 Notified by the RN that the patient refused the meds as ordered and want to wait for lab results. 1999 Labs reviewed. HEART Risk Score calculated at 3. Note risk factors HTN, Obesity, and +Family Hx of [place] in father <55 y/o. Will plan serial troponin. Results discussed with the patient. Clinical exam still appears musculoskeletal with tenderness and muscle tightness, patient agrees to Toradol and Valium now. 2239 Serial EKG unchanged other than prolonged CO interval. Serial Troponin <0.017, unchanged. Discussed HEART Risk Score with patient and he was given the options to be discharged from the ER knowing that his risk of a Major Adverse Cardiac Event is 0% at 1 year, be placed under observation for further testing, or decline further testing at this time and follow up with his PCP. Patient chooses to discharge to home and follow with his PCP. He was given discharge instructions and left the ER in stable condition. Last Recorded V/S: Last Vital Signs Temp 36.3 C 05/29/20 22:13 Pulse 61 05/29/20 22:13 Resp 14 05/29/20 22:13 BP 138/84 05/29/20 22:13 Pulse Ox 98 05/29/20 22:13 - Orders/Labs/Meds Orders: Active Orders 24 hr Category Date Time Status EKG Documentation Completion [RC] STAT Care 05/29/20 18:59 Active EKG Documentation Completion [RC] STAT Care 05/29/20 22:00 Active Sodium Chloride 0.9% [Saline Flush] Med 05/29/20 18:59 Active 10 ml FLUSH ASDIRECTED PRN Saline Lock Insert [OM.PC] Stat Oth 05/29/20 18:59 Ordered Medication Orders Sodium Chloride (Saline Flush) 10 ml FLUSH ASDIRECTED PRN PRN Reason: Keep Vein Open Last Admin: 05/29/20 20:18 Dose: 10 ml Documented by: EVGENY Labs: Laboratory Tests 05/29/20 05/29/20 05/29/20 Range/Units 19:10 19:10 22:02 WBC 5.9 (4.0-10.0) x10^3/uL RBC 4.76 (4.5-6.0) x10^6/uL Hgb 14.7 (14.0-18.0) g/dL Hct 40.1 (40.0-52.0) % MCV 84.2 D (78.0-93.0) fL MCH 30.9 (26.0-32.0) pg MCHC 36.7 H (32.0-36.0) g/dL RDW Coeff of Trish 13.0 (10.0-15.0) % Plt Count 211 (130-400) x10^3/uL Neut % (Auto) 66.5 (50.0-80.0) % Lymph % (Auto) 26.0 (25.0-50.0) % Letcher % (Auto) 6.5 (2.0-11.0) % Eos % (Auto) 0.8 (0.0-4.0) % Baso % (Auto) 0.2 (0.2-1.2) % Sodium 140 (136-145) mmol/L Potassium 3.9 (3.5-5.1) mmol/L Chloride 102 (98-107) mmol/L Carbon Dioxide 28 (21-32) mmol/L Anion Gap 13.9 (10-20) mmol/L BUN 15 (7-18) mg/dL Creatinine 1.6 H (0.70-1.30) mg/dL Est Cr Clr Drug Dosing TNP Estimated GFR (MDRD) 45 Glucose 110 H (74-106) mg/dL Calcium 8.6 (8.5-10.1) mg/dL Corrected Calcium 8.68 (8.5-10.1) mg/dL Total Bilirubin 1.6 H (0.2-1.0) mg/dL AST 28 (15-37) U/L ALT 66 H (16-63) U/L Alkaline Phosphatase 93 (46-116) U/L Troponin I < 0.017 < 0.017 (<=0.056) ng/mL Total Protein 7.1 (6.4-8.2) g/dL Albumin 3.9 (3.4-5.0) g/dL Globulin 3.2 Albumin/Globulin Ratio 1.22 Meds: Medications Generic Name Dose Route Start Last Admin Trade Name Freq PRN Reason Stop Dose Admin Sodium Chloride 10 ml 05/29/20 18:59 05/29/20 20:18 Saline Flush FLUSH 10 ml ASDIRECTED PRN Administration Keep Vein Open Discontinued Medications Generic Name Dose Route Start Last Admin Trade Name Freq PRN Reason Stop Dose Admin Diazepam 10 mg 05/29/20 19:00 05/29/20 20:17 Valium. PO 05/29/20 19:01 10 mg ONETIME ONE Administration Ketorolac Tromethamine 30 mg 05/29/20 18:59 05/29/20 20:17 Toradol IVPUSH 05/29/20 19:00 30 mg ONETIME ONE Administration Departure - Departure Time of Disposition: 22:45 Disposition: Home, Self-Care 01 Condition: Good Clinical Impression: Chest wall pain, Situational stress - Discharge Information Instructions: Chest Wall Pain, [id number], Adjustment Disorder, Adult Referrals: Rebecca Camacho PA-C [Primary Care Provider] - Forms: ED Department Discharge Additional Instructions: - Sepsis Event Note (ED) - Evaluation Sepsis Screening Result: No Definite Risk - Focused Exam Vital Signs: Vital Signs Temp Pulse Resp BP Pulse Ox 05/29/20 22:13 36.3 C 61 14 138/84 98 05/29/20 18:28 36.9 C 69 16 141/73 H 99 - My Orders Last 24 Hours: My Active Orders 05/29/20 18:59 EKG Documentation Completion [RC] STAT Sodium Chloride 0.9% [Saline Flush] 10 ml FLUSH ASDIRECTED PRN Saline Lock Insert [OM.PC] Stat 05/29/20 22:00 EKG Documentation Completion [RC] STAT - Assessment/Plan Last 24 Hours: My Active Orders 05/29/20 18:59 EKG Documentation Completion [RC] STAT Sodium Chloride 0.9% [Saline Flush] 10 ml FLUSH ASDIRECTED PRN Saline Lock Insert [OM.PC] Stat 05/29/20 22:00 EKG Documentation Completion [RC] STAT Assessment:: 1)Chest Wall Pain 2)Situational Stress Plan: Use ibuprofen or acetaminophen as needed for musculoskeletal pain -Apply ice or heat as needed -Use stress reductions techniques such as deep breathing, relaxation, prayer, li stening to music or other helpful measures -Use your Hydroxyzine as needed for anxiety/panic symptoms as needed -Follow up with your PCP for a follow up and to discuss further diagnostic testing or return to the ER if your pain returns
[2020-05-29 19:39] LABS: ANION GAP 13.9 mmol/L (10-20); CHLORIDE,CL 102 mmol/L (98-107); SODIUM,NA 140 mmol/L (136-145)
[2020-05-29] MEDS: Ketorolac 30 MG/ML SDV IVPUSH ONE (20:17)
[2020-05-29] MEDS: Diazepam 5 MG Tab PO ONE (20:17)
[2020-05-29] MEDS: Sodium Chloride 0.9% 10 ML Syringe FLUSH PRN (20:18)
[2020-05-29 22:14] VITALS: BP 138/84; PULSE 61
== END 2020-05-29 23:02 | disposition home or self-care (01) ==
LOC: VM.ED 18:23
DX: R07.89 Other chest pain (principal); F43.9 Reaction to severe stress, unspecified; K21.9 Gastro-esophageal reflux disease without esophagitis; N18.9 Chronic kidney disease, unspecified; F32.9 Major depressive disorder, single episode, unspecified; F98.8 Other specified behavioral and emotional disorders with onset usually occurring in childhood and adolescence; Z88.8 Allergy status to other drugs, medicaments and biological substances; Z88.1 Allergy status to other antibiotic agents; Z79.899 Other long term (current) drug therapy
CPT/HCPCS: 36415; 80053; 84484; 85025; 93005; 93010; 96374; 99284; 99285-25; A9270-GY; J1885